=== PATIENT | female | born 1985 | race Caucasian/White ===

== ENCOUNTER 2023-05-22 06:15 | Inpatient (IN) | payer OTHER ==
[2023-05-22] MEDS ORDERED: METHYLERGONOVINE 0.2 MG/ML 1 ML AMP IM PRN (06:45)
[2023-05-22] MEDS ORDERED: LIDOCAINE 0.5% (PF) 5 MG/ML (50 ML SDV) SQ PRN (06:45)
[2023-05-22] MEDS ORDERED: OXYTOCIN 10 UNIT/ML 1 ML VIAL IM PRN (06:45)
[2023-05-22] MEDS ORDERED: CARBOPROST TROMETHAMINE 250 MCG/ML 1 ML AMP IM PRN (06:45)
[2023-05-22] MEDS ORDERED: TERBUTALINE 1 MG/ML VIAL SQ PRN (06:45)
[2023-05-22] MEDS ORDERED: miSOPROStoL 200 MCG TAB PO PRN (06:45)
[2023-05-22] MEDS ORDERED: PENICILLIN G POTASSIUM 5,000,000 UNIT in DEXTROSE 5% IN WATER 100 ML IVPB STA ×2 (06:45)
[2023-05-22] MEDS ORDERED: TRANEXAMIC 1,000 MG/100ML-NACL 1,000 MG in EMPTY BAG 1 BAG IV PRN (06:45)
[2023-05-22] MEDS: LACTATED RINGERS 1,000 ML IV SCH ×2 (06:57→18:58)
[2023-05-22 07:10] LABS: Basophils % (A) 0 %; Eosinophils # (A) 0.2 k/uL (0-0.7); Eosinophils % (A) 1 %; HCT 36.7 % (34.0-46.0); HGB 12.3 gm/dL (11.4-16.0); Lymphocytes # (A) 2.6 k/uL (1.0-4.8); Lymphocytes % (A) 25 %; MCH 29.1 pg (25.0-35.0); MCHC 33.5 g/dL (31.0-37.0); Mean Platelet Volume 8.7; Monocytes # (A) 0.8 k/uL (0-1.0); Monocytes % (A) 7 %; Neutrophils # (A) 6.7 k/uL (1.3-7.7); Neutrophils % (A) 64 %; Platelet Count 271 k/uL (150-450); RBC 4.21 m/uL (3.80-5.40); RDW 14.1 % (11.5-15.5); WBC 10.5 k/uL (3.8-10.6)
[2023-05-22] MEDS ORDERED: OXYTOCIN 30 UNITS/500 ML NS 30 UNIT in SALINE 1 500ML.BAG IV SCH ×2 (07:15→16:45)
[2023-05-22] MEDS ORDERED: NALBUPHINE 10 MG/ML (10 ML MDV) IV PRN (08:40)
--- NOTE | 2023-05-22 08:44 | P.HPOB ---
History of Present Illness H&P Date: 05/22/23 Chief Complaint: 39-0/7 weeks, elective induction The patient is a 37-year-old 1 para 0 admitted at 39-0/7 weeks as established by 10 week ultrasound. She is admitted for an elective induction with all signs reassuring, category 1 heart rate tracing. Her has been entirely uncomplicated. She is group B strep positive. Obstetrical history: 1 para 0 with current statistics listed in history of present illness. EDC of 05/29/2023 was established by a 10 week ultrasound. Laboratory workup demonstrates a blood type of O+ with a negative antibody screen. Rubella status is immune. The remainder of the laboratory workup was within normal limits. One hour Glucola was normal and group B strep status is positive. Gynecologic history: Unremarkable with no history of any infections to include STDs. Review of Systems Review of systems is confined to history of present illness. Past Medical History Past Medical History: No Reported History History of Any Multi-Drug Resistant Organisms: None Reported Past Surgical History: No Surgical Hx Reported Past Anesthesia/Blood Transfusion Reactions: No Reported Reaction Past Psychological History: No Psychological Hx Reported Smoking Status: Never smoker Medications and Allergies Home Medications Medication Instructions Recorded Confirmed Type Vit No.179/Iron/Folic 05/22/23 History [ Tablet] Allergies Allergy/AdvReac Type Severity Reaction Status Date / Time No Known Allergies Allergy Verified 05/22/23 06:44 Exam Intake and Output 05/21/23 05/22/23 05/22/23 22:59 06:59 14:59 Other: Weight 87.997 kg In general, this is a well-developed, well-nourished white female in no acute distress. Her heart has a regular rhythm and rate without murmur. Her lungs clear to auscultation bilaterally in all henry. Her abdomen is gravid, nondistended, has normal active bowel sounds, soft, nontender, without any pal pable masses aside from uterine fundus. Her extremities are without any cyanosis, clubbing, or edema and are nontender to palpation bilaterally. Digital cervical examination demonstrates cervix to be 1-2 cm dilated, 60% effaced, the vertex in presentation at -2 station. Artificial rupture of memb ranes is carried out demonstrating clear fluid. Results Result Diagrams: 05/22/23 06:55 Assessment and Plan (1) Group B streptococcal infection in Current Visit: Yes Status: Acute Code(s): O98.819 - OTH MATERNAL INFEC/PARASTC DISEASES COMP PREG, UNSP TRI; B95.1 - STREPTOCOCCUS, GROUP B, CAUSING DISEASES CLASSD [id number] SNOMED Code(s): 321331842 (2) Term Current Visit: Yes Status: Acute Code(s): Z34.90 - ENCNTR FOR SUPRVSN OF NORMAL , UNSP, UNSP TRIMESTER SNOMED Code(s): 71074787 Plan: The patient is admitted for elective induction of labor. Antibody prophylaxis has been started for group B strep. Pitocin augmentation has been started as well. She will have close maternal and surveillance and expectant management will be practiced. She is a good candidate for either IV or epidural analgesia, whichever she may choose.
[2023-05-22] MEDS: PENICILLIN G POTASSIUM 2,500,000 UNIT in DEXTROSE 5% IN WATER 100 ML IVPB SCH ×4 (10:57→15:02)
[2023-05-22] MEDS ORDERED: ROPIVACAINE 5 MG/ML 30 ML VIAL ONE (11:16)
[2023-05-22] MEDS ORDERED: SODIUM CHLORIDE 0.9% 250 ML BAG ONE (11:16)
[2023-05-22] MEDS ORDERED: fentaNYL (PF) 50 MCG/ML 5 ML AMP ONE (11:16)
[2023-05-22] MEDS ORDERED: LANOLIN CREAM 5 GM TUBE TOPICAL PRN (16:38)
[2023-05-22] MEDS ORDERED: ZOLPIDEM 5 MG TAB PO PRN (16:38)
[2023-05-22] MEDS ORDERED: SIMETHICONE 80 MG CHEWABLE PO PRN (16:38)
[2023-05-22] MEDS ORDERED: BENZOCAINE/MENTHOL SPRAY 1 GM/SPRAY AEROSOL TOPICAL PRN (16:38)
[2023-05-22] MEDS ORDERED: HYDROcodone/APAP 5-325MG 1 EACH TAB PO PRN (16:38)
[2023-05-22] MEDS ORDERED: diphenhydrAMINE 50 MG/ML 1 ML VIAL IVP PRN ×2 (16:38)
[2023-05-22] MEDS ORDERED: diphenhydrAMINE 50 MG CAP PO PRN (16:38)
[2023-05-22] MEDS ORDERED: HYDROcodone/APAP 7.5-325MG 1 EACH TAB PO PRN (16:38)
[2023-05-22] MEDS ORDERED: HYDROCORTISONE 2.5% RECTAL CREAM 30 GM TUBE RECTAL PRN (16:38)
[2023-05-22] MEDS ORDERED: diphenhydrAMINE 25 MG CAP PO PRN (16:38)
--- NOTE | 2023-05-22 16:44 | P.PROBDLV ---
Vaginal Delivery Note - . Vaginal Delivery Note: Patient is a 37-year-old 1 para 0 admitted at 39-0/7 weeks by good dating parameters. She is admitted for elective induction of labor with a favorable cervix and all signs reassuring, category 1 heart tracing. Her was uncomplicated. She did fall into the category of advanced maternal age and had negative trisomy testing. She was found to be group B strep positive. On labor and delivery, she had Pitocin started as well as penicillin prophylaxis for group B strep. She underwent artificial rupture of membranes. She made reasonable progress through the latent phase of labor to approximately 4 cm at which time she had an epidural catheter placed for analgesia. She then made steady progress through the active phase of labor to complete and pushed over the course of approximately 1 hour and 20 minutes to a normal spontaneous vaginal delivery of a viable 7 lbs. 4 oz. baby girl with Apgars of 9 at 1 minute and 9 at 5 minutes delivered in the direct occiput anterior position. The placenta was delivered spontaneously, intact, and grossly normal with a grossly normal, marginally inserted three-vessel cord. There was a second-degree midline episiotomy cut for the delivery which, prior to repair was noted to have perhaps a small capsular tear and the external anal sphincter which was reinforced with a single [id number] stitch of 2-0 Vicryl. The remainder of the episiotomy which was not extended was repaired in standard fashion using 3-0 chromic catgut without difficulty. Estimated blood loss for the case is approximately 150 mL. There were no complications. All sponge, instrument, needle counts were correct. Both mother and infant are resting comfortably in recovery.
[2023-05-22] MEDS: IBUPROFEN 600 MG TAB PO PRN (18:38)
[2023-05-22] MEDS: SENNOSIDES-DOCUSATE SODIUM 1 EACH TAB PO SCH (20:31)
[2023-05-23] MEDS: ACETAMINOPHEN TAB 325 MG TAB PO PRN ×2 (00:19→08:04)
[2023-05-23 01:06] VITALS: RESP 16
[2023-05-23] MEDS: IBUPROFEN 600 MG TAB PO PRN ×2 (04:59→12:36)
[2023-05-23 06:42] LABS: Basophils % (A) 0 %; Eosinophils # (A) 0.1 k/uL (0-0.7); Eosinophils % (A) 0 %; HCT 36.2 % (34.0-46.0); HGB 11.5 gm/dL (11.4-16.0); Lymphocytes # (A) 2.3 k/uL (1.0-4.8); Lymphocytes % (A) 16 %; MCH 27.7 pg (25.0-35.0); MCHC 31.9 g/dL (31.0-37.0); Mean Platelet Volume 9.3; Monocytes % (A) 7 %; Neutrophils # (A) 10.8 k/uL (1.3-7.7); Neutrophils % (A) 75 %; Platelet Count 219 k/uL (150-450); RBC 4.16 m/uL (3.80-5.40); RDW 14.3 % (11.5-15.5); WBC 14.3 k/uL (3.8-10.6)
[2023-05-23] MEDS: SENNOSIDES-DOCUSATE SODIUM 1 EACH TAB PO SCH (08:04)
--- NOTE | 2023-05-23 08:42 | P.DS ---
Providers Date of admission: 05/22/23 06:22 Expected date of discharge: 05/23/23 Attending physician: Harjeet Lynn Primary care physician: Stated None - Discharge Diagnosis(es) (1) Group B streptococcal infection in Current Visit: Yes Status: Acute (2) Term Current Visit: Yes Status: Acute (3) Normal spontaneous vaginal delivery Current Visit: Yes Status: Acute Hospital Course: The patient is a 37-year-old 1 para 0 admitted at 39-0/7 weeks by good dating parameters perches admitted for elective induction with all signs reassuring, category [address]. Her was uncomplicated and group B strep status is positive. On labor and delivery, she had antibiotic prophylaxis started as well as Pitocin augmentation. She underwent artificial rupture of membranes for clear fluid. She made progress to the active phase and had an epidural catheter placed for analgesia. She then progressed steadily to complete and ultimately pushed to a normal spontaneous vaginal delivery of a viable 7 lbs. 4 oz. baby girl with Apgars of 9 at 1 minute and 9 at 5 minutes. Her course was unremarkable with vital signs remaining stable and her temperature was afebrile throughout. She was deemed stable for discharge on day #1 was discharged home to follow-up in the office in 6 weeks' time routinely. Discharge instructions included calling for any significantly increased bleeding or foul-smelling lochia, significantly increased fever or abdominal pain, perineal complaints, breast complaints, or anything else that concerned her. She was additionally instructed to have nothing in the vagina for at least 6 weeks time to include intercourse. She understood her instructions and agrees to follow up as noted above. Discharge medications included continued vitamins as she has opted to breast- feed. She was otherwise to use [id number] analgesic pain medications as needed. Maternal blood type is O+ and rubella status is immune. Procedures: #1. Antibiotic prophylaxis #2. Pitocin induction #3. Artificial rupture of membranes #4. Epidural analgesia #5. Normal spontaneous vaginal delivery #6. Second-degree midline episiotomy and repair. Patient Condition at Discharge: Stable Plan - Discharge Summary New Discharge Prescriptions: No Action Vit No.179/Iron/Folic [ Tablet] Discharge Medication List Vit No.179/Iron/Folic [ Tablet] 05/22/23 [History] Follow up Appointment(s)/Referral(s): Harjeet Lynn MD [STAFF PHYSICIAN] - 2 Weeks Discharge Disposition: HOME SELF-CARE
[2023-05-23 17:23] VITALS: BP 116/75; PULSE 72; TEMP 98
== END 2023-05-23 17:00 | disposition home or self-care (01) | DRG 807 ==
LOC: 4FBP 06:22
PROVIDERS: ADMIT Obstetrics & Gynecology; ATTEND Obstetrics & Gynecology
PROC: 10E0XZZ Delivery of Products of Conception, External Approach (ICD-10-PCS; principal; 2023-05-22)
PROC: 0W8NXZZ Division of Female Perineum, External Approach (ICD-10-PCS; principal; 2023-05-22)
PROC: 3E033VJ Introduction of Other Hormone into Peripheral Vein, Percutaneous Approach (ICD-10-PCS; principal; 2023-05-22)
PROC: 10907ZC Drainage of Amniotic Fluid, Therapeutic from Products of Conception, Via Natural or Artificial Opening (ICD-10-PCS; principal; 2023-05-22)
DX: O99.824 Streptococcus B carrier state complicating childbirth (principal); O43.193 Other malformation of placenta, third trimester; Z28.310 Unvaccinated for COVID-19; Z3A.39 39 weeks gestation of pregnancy; Z37.0 Single live birth
CPT/HCPCS: 85025; 86850; 86900; 86901